=== PATIENT | female | born 1945 | race Caucasian/White ===

== ENCOUNTER 2022-04-02 13:50 | Outpatient (CLI) | payer OTHER, SELFPAY ==
[2022-04-02 10:07] LABS: Abs Immature Grans 0.02 10^3/uL (0.0-0.06); Absolute Basophil Count 0.02 10^3/uL (0.0-0.2); Absolute Eosinophil Count 0.07 10^3/uL (0.0-0.7); Absolute Lymphocyte Count 0.28 10^3/uL (1.2-3.4); Absolute Monocyte Count 0.66 10^3/uL (0.1-0.8); Basophils % 0.3; HCT 34.5 % (36.0-46.0); HGB 10.9 g/dL (11.2-15.7); Immature Grans % 0.3; Lymphocytes % 4.1; MCH 29.1 pg (27.0-33.0); MCHC 31.6 % (32.0-36.0); MCV 92 fL (80-95); MPV 9.6 fL (8.0-11.0); Monocytes % 9.8; Neutrophils % 84.5; Platelet Count 222 10^3/uL (130-400); RBC 3.75 10^6/uL (3.93-5.22); RDW-SD 43.7 fL; WBC 6.75 10^3/uL (4.4-10.8)
[2022-04-02 10:21] LABS: ALT 24 U/L (14-59); AST 19 U/L (15-37); Albumin 3.4 g/dL (3.4-5.0); Alkaline Phosphatase 84 U/L (46-116); Anion Gap 6.7 mmol/L (3-11); BUN 27 mg/dL (7-18); Bilirubin, Total 0.3 mg/dL (0.2-1.0); CO2 29.3 mmol/L (21.0-32.0); CREATININE 0.7 mg/dL (0.55-1.02); Calcium 10.8 mg/dL (8.5-10.1); Chloride 102 mmol/L (98-107); Estimated GFR 89.58 (mL/min/1.73m2); Glucose 132 mg/dL (74-106); Potassium 4.6 mmol/L (3.5-5.1); Sodium 138 mmol/L (136-145); Total Protein 7.7 g/dL (6.4-8.2)
--- OUTSIDE RECORDS SUMMARY | 2022-04-02 13:59 | XMS_ITS | Continuity of Care Document ---
:1945 Author Organization [facility] Ambulatory Clinics Address [address] [place] [address] Encounter [facility] [facility] NBR [id number] Date(s): 01/28/22 - 01/28/22 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 Cancer of tongue (Discharge Diagnosis) - 01/28/22 Depression (Discharge Diagnosis) - 01/28/22 Discharge Disposition: Home or Self Care Attending Physician: Mariangel Babin MD Allergies, Adverse Reactions, Alerts Substance Reaction Severity Status Ativan Unknown Active oxyCODONE Unknown Active Assessment and Plan Future Appointments Functional Status 01/28/22 Other exposure to Infectious Disease None Immunizations Given and Recorded Vaccine Date Status Refusal Reason SARS-CoV-2 (COVID-19) mRNA BNT-162b2 vax1 07/12/20 Record ed SARS-CoV-2 (COVID-19) mRNA BNT-162b2 vax2 06/18/20 Record ed 1Result Comment: Unit: [id number] Comment: Unit: Unknown Medications calcium carbonate 600 mg (elemental Ca 240 mg) oral tablet BID, 0 Refill(s) Start Date: 01/28/22 Status: OrderedCentrum Silver 0 Refill(s) Start Date: 01/28/22 Status: Orderedcholecalciferol 1000 intl units oral capsule 1 Unknown, 0 Refill(s) Start Date: 01/28/22 Status: OrdereddilTIAZem 300 mg/24 hours oral capsule, extended release 1 Unknown, 0 Refill(s) Start Date: 01/28/22 Status: OrderedFish Oil 1000 mg oral capsule 0 Refill(s) Start Date: 01/28/22 Status: Orderedgabapentin 100 mg oral capsule 100 mg = 1 cap, Oral, TID, # 90 cap, 0 Refill(s) Start Date: 01/28/22 Status: Orderedlevothyroxine 50 mcg (0.05 mg) oral tablet 0 Refill(s) Start Date: 01/28/22 Status: Orderedlovastatin 20 mg oral tablet 0 Refill(s) Start Date: 01/28/22 Status: OrderedMotrin Arthritis Pain 0 Refill(s) Start Date: 01/28/22 Status: OrderedOmega-3 Fish Oil 1000 mg oral capsule 1 Unknown, 0 Refill(s) Start Date: 01/28/22 Status: Orderedomeprazole 40 mg oral delayed release capsule 0 Refill(s) Start Date: 01/28/22 Status: Orderedubiquinone 100 mg oral capsule 1 Unknown, 0 Refill(s) Start Date: 01/28/22 Status: Ordered Problem List Condition Confirmation Course Effective Status Health Informa nt Dates Status Dizziness Confirmed Active Dysphagia Confirmed Active GERD without esophagitis Confirmed Active Hypercalcemia Confirmed Active Hyperlipidemia Confirmed Active Hyperparathyroidism Confirmed Active HTN (hypertension) Confirmed Active Ductal carcinoma of left Confirmed Active breast Osteoporosis Confirmed Active Breast screening Confirmed Active Pre-diabetes Confirmed Active Procedures Procedure Date Related Diagnosis Body Site Status Breast biopsy and related procedures1 Completed Colonoscopy Completed Glossectomy Completed Tonsillectomy Completed 1left breast bx APRIL AND MAY 2020 Vital Signs Most recent to oldest [Reference Range]: 1 Temperature Temporal Artery [36-38 Deg C] 35.9 Deg C *LOW* (01/28/22 11:14 AM) Apical Heart Rate [60-100 bpm] 66 bpm (01/28/22 11:14 AM) Blood Pressure [90-140/60-90 mmHg] 108/59 mmHg (01/28/22 11:14 AM) Weight 36.0 kg (01/28/22 11:14 AM) Weight Measured (lbs) 79.366 lb (01/28/22 11:14 AM) [place] Body Weight Calculated 45.5 kg (01/28/22 11:14 AM) Height 149.86 cm (01/28/22 11:14 AM) Height/Length Measured (inches) 59 inch (01/28/22 11:14 AM) BSA Measured 1.22 m2 (01/28/22 11:14 AM) Body Mass Index 16.03 kg/m2 (01/28/22 11:14 AM) Social History Social History Type Response Tobacco Never tobacco user Tobacco U se:. Sex
== END 2022-04-02 13:51 | disposition home or self-care (01) ==
LOC: LBO 13:51
PROVIDERS: Visit Provider Internal Medicine Hematology & Oncology
DX: C02.9 Malignant neoplasm of tongue, unspecified (principal)
CPT/HCPCS: 36415; 80053; 85025

== ENCOUNTER 2022-05-03 02:54 | Outpatient (CLI) | payer MEDICARE, SELFPAY ==
[2022-05-03 13:48] LABS: Abs Immature Grans 0.05 10^3/uL (0.0-0.06); Absolute Basophil Count 0.04 10^3/uL (0.0-0.2); Absolute Eosinophil Count 0.15 10^3/uL (0.0-0.7); Absolute Lymphocyte Count 0.52 10^3/uL (1.2-3.4); Absolute Monocyte Count 0.81 10^3/uL (0.1-0.8); Absolute Neutrophil Count 7.94 10^3/uL (1.2-6.7); Basophils % 0.4; Eosinophils % 1.6; HCT 34.7 % (36.0-46.0); HGB 10.9 g/dL (11.2-15.7); Immature Grans % 0.5; Lymphocytes % 5.5; MCH 28.6 pg (27.0-33.0); MCHC 31.4 % (32.0-36.0); MCV 91 fL (80-95); Monocytes % 8.5; Neutrophils % 83.5; Platelet Count 303 10^3/uL (130-400); RBC 3.81 10^6/uL (3.93-5.22); RDW 12.8 % (11.7-14.6); RDW-SD 42.3 fL; WBC 9.51 10^3/uL (4.4-10.8)
[2022-05-03 14:04] LABS: ALT 26 U/L (14-59); AST 20 U/L (15-37); Albumin 3.4 g/dL (3.4-5.0); Alkaline Phosphatase 78 U/L (46-116); Anion Gap 5.5 mmol/L (3-11); BUN 32 mg/dL (7-18); Bilirubin, Total 0.2 mg/dL (0.2-1.0); CO2 31.5 mmol/L (21.0-32.0); CREATININE 0.9 mg/dL (0.55-1.02); Calcium 10.8 mg/dL (8.5-10.1); Chloride 101 mmol/L (98-107); Estimated GFR 66.26 (mL/min/1.73m2); Glucose 107 mg/dL (74-106); Potassium 4.3 mmol/L (3.5-5.1); Sodium 138 mmol/L (136-145); Total Protein 8.1 g/dL (6.4-8.2)
== END 2022-05-03 02:55 | disposition home or self-care (01) ==
LOC: LBO 02:54
PROVIDERS: Internal Medicine Hematology & Oncology; Visit Provider Internal Medicine Hematology & Oncology
DX: C02.9 Malignant neoplasm of tongue, unspecified (principal)
CPT/HCPCS: 36415; 80053; 85025

== ENCOUNTER 2022-08-30 02:00 | Outpatient (RCR) | payer MEDICARE, SELFPAY ==
[2022-08-30] MEDS: Normal Saline Flush 10 ML SYR IVP (09:27)
[2022-08-30 09:48] LABS: Abs Immature Grans 0.08 10^3/uL (0.0-0.06); Absolute Basophil Count 0.06 10^3/uL (0.0-0.2); Absolute Monocyte Count 1.25 10^3/uL (0.1-0.8); Basophils % 0.5; Eosinophils % 6.1; HCT 29.8 % (36.0-46.0); HGB 9.1 g/dL (11.2-15.7); Immature Grans % 0.7; Lymphocytes % 4.3; MCHC 30.5 % (32.0-36.0); MCV 85 fL (80-95); MPV 8.8 fL (8.0-11.0); Monocytes % 10.2; Neutrophils % 78.2; Platelet Count 403 10^3/uL (130-400); RDW 13.9 % (11.7-14.6); RDW-SD 42.8 fL; WBC 12.22 10^3/uL (4.4-10.8)
[2022-08-30 09:50] LABS: Absolute Eosinophil Count 0.75 10^3/uL (0.0-0.7); Absolute Lymphocyte Count 0.53 10^3/uL (1.2-3.4); Absolute Neutrophil Count 9.56 10^3/uL (1.2-6.7)
[2022-08-30 10:13] LABS: ALT 16 U/L (14-59); AST 13 U/L (15-37); Albumin 2.6 g/dL (3.4-5.0); Alkaline Phosphatase 83 U/L (46-116); Anion Gap 6.1 mmol/L (3-11); BUN 27 mg/dL (7-18); Bilirubin, Total 0.2 mg/dL (0.2-1.0); CO2 26.9 mmol/L (21.0-32.0); CREATININE 0.8 mg/dL (0.55-1.02); Chloride 103 mmol/L (98-107); Estimated GFR 76.31 (mL/min/1.73m2); FREE T4 0.88 ng/dL (0.76-1.46); Glucose 107 mg/dL (74-106); Potassium 4.6 mmol/L (3.5-5.1); Sodium 136 mmol/L (136-145); TSH 34.98 uIU/mL (0.36-3.74); Total Protein 7.6 g/dL (6.4-8.2)
== END 2022-09-15 23:59 | disposition home or self-care (01) ==
LOC: INF 02:00
PROVIDERS: PCP Nurse Practitioner Family; Visit Provider Internal Medicine Hematology & Oncology
DX: E83.52 Hypercalcemia (principal); Z45.2 Encounter for adjustment and management of vascular access device; C02.9 Malignant neoplasm of tongue, unspecified
CPT/HCPCS: 36591; 80053; 84439; 84443; 85025

== ENCOUNTER 2022-10-11 02:46 | Outpatient (RCR) | payer MEDICARE, SELFPAY ==
[2022-09-20] MEDS: Normal Saline Flush 10 ML SYR IVP (10:10)
[2022-09-20 10:18] LABS: Abs Immature Grans 0.08 10^3/uL (0.0-0.06); Absolute Eosinophil Count 0.41 10^3/uL (0.0-0.7); Absolute Lymphocyte Count 0.79 10^3/uL (1.2-3.4); Basophils % 0.4; HCT 31.6 % (36.0-46.0); HGB 9.5 g/dL (11.2-15.7); Immature Grans % 0.6; Lymphocytes % 5.8; MCH 25.4 pg (27.0-33.0); MCHC 30.1 % (32.0-36.0); MCV 85 fL (80-95); MPV 8.5 fL (8.0-11.0); Monocytes % 9.6; Neutrophils % 80.6; Platelet Count 416 10^3/uL (130-400); RBC 3.74 10^6/uL (3.93-5.22); RDW 14.7 % (11.7-14.6); RDW-SD 44.7 fL; WBC 13.68 10^3/uL (4.4-10.8)
[2022-09-20 10:26] LABS: Absolute Basophil Count 0.05 10^3/uL (0.0-0.2); Absolute Monocyte Count 1.31 10^3/uL (0.1-0.8); Absolute Neutrophil Count 11.03 10^3/uL (1.2-6.7)
[2022-09-20 10:43] LABS: ALT 16 U/L (14-59); AST 14 U/L (15-37); Albumin 2.8 g/dL (3.4-5.0); Alkaline Phosphatase 74 U/L (46-116); Anion Gap 5.6 mmol/L (3-11); BUN 27 mg/dL (7-18); Bilirubin, Total 0.2 mg/dL (0.2-1.0); CO2 27.4 mmol/L (21.0-32.0); CREATININE 0.9 mg/dL (0.55-1.02); Calcium 10.1 mg/dL (8.5-10.1); Chloride 102 mmol/L (98-107); Estimated GFR 66.26 (mL/min/1.73m2); FREE T4 0.76 ng/dL (0.76-1.46); Glucose 124 mg/dL (74-106); Potassium 4.8 mmol/L (3.5-5.1); Sodium 135 mmol/L (136-145); TSH 47.29 uIU/mL (0.36-3.74); Total Protein 7.9 g/dL (6.4-8.2)
== END 2022-10-15 23:59 | disposition home or self-care (01) ==
LOC: INF 02:46
PROVIDERS: PCP Nurse Practitioner Family; Visit Provider Internal Medicine Hematology & Oncology
DX: Z79.899 Other long term (current) drug therapy (principal); C02.9 Malignant neoplasm of tongue, unspecified; E83.52 Hypercalcemia
CPT/HCPCS: 36591; 80053; 84439; 84443; 85025